=== PATIENT | female | born 1985 | race Caucasian/White ===

== ENCOUNTER 2016-08-23 00:30 | Emergency (ER) | payer OTHER ==
[~2016-08-23] VITALS: Ht 170.2 cm; Wt 95.1 kg
[2016-08-23 00:31] VITALS: BP 134/78
[2016-08-23] MEDS ORDERED: SODIUM CHLORIDE FLUSH 10ML SYR IVF ONE (01:00)
[2016-08-23] MEDS ORDERED: ONDANSETRON 2MG/ML, 2ML IVPush ONE (01:00)
[2016-08-23] MEDS ORDERED: SODIUM CHLORIDE 0.9% 1,000ML IV ONE (01:00)
[2016-08-23] MEDS ORDERED: MORPHINE SULFATE 4 MG/ML, 1ML ONE ×2 (01:05→02:42)
[2016-08-23] MEDS ORDERED: ONDANSETRON 2MG/ML, 2ML ONE (01:06)
[2016-08-23 01:18] LABS: ASPARTATE AMINO TRANSFERASE 12 U/L (15-37); BLOOD UREA NITROGEN 12 mg/dL (7-18)
[2016-08-23] MEDS: MORPHINE SULFATE 4 MG/ML, 1ML IVPush PRN ×2 (01:19→02:44)
[2016-08-23 01:30] LABS: PATH.CAST-FLAG NOT PRESENT; SPERM-FLAG NOT PRESENT; SRC-FLAG NOT PRESENT; XTAL-FLAG NOT PRESENT; YLC-FLAG NOT PRESENT
[2016-08-23] MEDS ORDERED: CEFTRIAXONE PMX 1GM/50ML 50 ML IV ONE (02:00)
[2016-08-23] MEDS ORDERED: CEFTRIAXONE PMX 1GM/50ML 50 ML ONE (02:13)
== END 2016-08-23 03:06 | disposition home or self-care (01) ==
LOC: ED 03:00
DX: N10 Acute pyelonephritis (principal)
CPT/HCPCS: 36415; 76770; 80053; 81001; 83690; 84703; 85025; 87077; 87086; 96361; 96365; 96375; 96376; 99285; J0696; J2405; J7030; 87186